=== PATIENT | male | born 1980 | race Caucasian/White ===

== ENCOUNTER → 2018-02-06 08:19 | Outpatient (CLI) | payer OTHER, SELFPAY ==
--- NOTE | 2018-02-06 | DI.US.S_ITS ---
PROCEDURE: US ABDOMEN LIMITED INDICATIONS: LEFT GROIN LUMP POST OP TECHNIQUE: Real-time focused scanning was performed of the inguinal region, with image documentation. COMPARISON: None. FINDINGS: Corresponding to the palpable abnormality is a 2.2 x 3.1 x 4.1 cm irregular fluid collection showing no internal blood flow. IMPRESSION: Probable seroma left groin Dictated by: Tyrese Shirley M.D. on 02/06/2018 at 9:33 Approved by: Tyrese Shirley M.D. on 02/06/2018 at 9:35
== END ==
PROVIDERS: PCP Internal Medicine; Visit Provider Specialist
DX: R22.42 Localized swelling, mass and lump, left lower limb (principal)
CPT/HCPCS: 76705

== ENCOUNTER → 2019-07-24 11:38 | Outpatient (CLI) | payer OTHER, SELFPAY ==
[2019-07-24 12:35] LABS: Add Manual Diff / Slide Review NO; Basophils Absolute Auto 0 /uL (0-100); Basophils Percent Auto 0.2 % (0-2); Eosinophils Absolute Auto 200 /uL (0-450); Eosinophils Percent Auto 1.6 % (2-4); Hemoglobin 14.6 g/dL (13.5-17.5); Lymphocytes Absolute Auto 2200 /uL (1100-4500); Lymphocytes Percent Auto 19.7 % (25-40); Mean Corpuscular Hemoglobin 28.7 PG (26-34); Mean Corpuscular Volume 84.3 fL (80-100); Monocytes Absolute Auto 700 /uL (0-900); Neutrophils Absolute Auto 8000 /uL (1500-7000); Neutrophils Percent Auto 72.5 % (50-75); Platelet Count 263 X10^3/uL (150-400); Red Cell Distribution Width 13.2 % (11.6-14.8)
[2019-07-24 12:48] LABS: Alanine Aminotransferase 29 IU/L (<50); Albumin 4.8 g/dL (3.5-5.0); Albumin Globulin Ratio 1.5 (1.0-2.8); Alkaline Phosphatase 71 U/L (38-126); Aspartate Aminotransferase 31 IU/L (17-59); Bilirubin Total 0.8 mg/dL (0.2-1.3); Blood Urea Nitrogen 14 mg/dL (9-20); Calcium 9.5 mg/dL (8.4-10.2); Carbon Dioxide 28 mmol/L (22-32); Chloride 102 mmol/L (98-107); Cholesterol 184 mg/dL (140-199); Estimated Glomerular Filt Rate > 60.0 mL/min (>60); Globulin 3.2 g/dL (1.7-4.1); Glucose 97 mg/dL (70-100); HDL Cholesterol 33 mg/dL (40-60); HEMOLYSIS < 15 (0-50); LDL Cholesterol Calculated 129 mg/dL (<100); Potassium 3.8 mmol/L (3.4-5.1); Sodium 140 mmol/L (137-145); Triglycerides 112 mg/dL (35-150)
== END ==
PROVIDERS: PCP Internal Medicine; Visit Provider Internal Medicine
DX: Z13.1 Encounter for screening for diabetes mellitus (principal); Z13.6 Encounter for screening for cardiovascular disorders; J45.909 Unspecified asthma, uncomplicated; R59.1 Generalized enlarged lymph nodes; R94.5 Abnormal results of liver function studies
CPT/HCPCS: 36415; 80053; 80061; 85025

== ENCOUNTER → 2020-03-24 17:14 | Outpatient (CLI) | payer OTHER, SELFPAY ==
[2020-03-25 21:46] LABS: COVID19 Sendout Not Detected (Not Detect)
== END ==
PROVIDERS: PCP Internal Medicine; Visit Provider Physician Assistant
DX: Z03.818 Encounter for observation for suspected exposure to other biological agents ruled out (principal)
CPT/HCPCS: 87635

== ENCOUNTER → 2020-08-21 14:15 | Outpatient (CLI) | payer OTHER, SELFPAY ==
--- NOTE | 2020-08-21 14:18 | DI.CT.S_ITS ---
PROCEDURE: CT ANGIO CHEST INDICATIONS: dyspnea/chest tightness TECHNIQUE: After the administration of intravenous contrast, 2 mm thick sections acquired from the pulmonary apices to the posterior costophrenic angles. 3-dimensional maximum intensity projection (MIP) coronal and sagittal reformats were then acquired through the thorax. For radiation dose reduction, the following was used: automated exposure control, adjustment of mA and/or kV according to patient size. COMPARISON: [facility], CT, CHEST ANGIO-PE, 07/31/2012, 1:36. [facility], CT, ABDOMEN/PELVIS WITH CONTRAST, 08/30/2017, 11:20. [facility], CR, CHEST 2 VIEW, 11/02/2017, 12:56. [facility], CR, XR CHEST 2 VIEWS, 08/16/2020, 10:39. FINDINGS: Image quality: Excellent. Pulmonary arteries: Pulmonary arteries are normal in size, and demonstrate no intraluminal filling defects to suggest central pulmonary embolism. Lungs and pleura: Lungs are clear. No pleural effusions or pneumothorax. Central and peripheral airways are patent. Mediastinum: Heart size is normal, without pericardial effusion. There is mild coronary artery calcification. No mediastinal or hilar adenopathy. Thoracic aorta is normal in caliber and enhancement. Esophagus is normal in caliber, without hiatal hernia. Bones and chest wall: No suspicious bony lesions. Ribs and thoracic spine appear intact throughout. Thyroid gland is normal. No axillary or supraclavicular adenopathy. Abdomen: Visualized upper abdominal solid organs appear normal in the early arterial phase of enhancement. IMPRESSION: 1. No evidence for pulmonary embolism. 2. No acute cardiopulmonary disease. 3. Mild coronary artery calcification. Dictated by: Christal Morris M.D. on 08/21/2020 at 14:54 Approved by: Christal Morris M.D. on 08/21/2020 at 15:01
== END ==
PROVIDERS: PCP Internal Medicine; Referring Provider Internal Medicine; Visit Provider Internal Medicine
DX: R07.89 Other chest pain (principal); R06.00 Dyspnea, unspecified; I25.10 Atherosclerotic heart disease of native coronary artery without angina pectoris
CPT/HCPCS: 71275; Q9967

== ENCOUNTER → 2020-10-28 10:16 | Outpatient (CLI) | payer OTHER, SELFPAY ==
--- NOTE | 2020-10-28 10:17 | DI.CT.S_ITS ---
PROCEDURE: CT ABDOMEN PELVIS W CON INDICATIONS: left flank pain TECHNIQUE: After the administration of intravenous contrast, 5 mm thick sections acquired from the diaphragm to the symphysis. 5 mm coronal and sagittal reformats were acquired. For radiation dose reduction, the following was used: automated exposure control, adjustment of mA and/or kV according to patient size. COMPARISON: [facility], CR, XR CHEST 2 VIEWS, 08/16/2020, 10:39. [facility], CT, ABDOMEN/PELVIS WITH CONTRAST, 08/30/2017, 11:20. FINDINGS: Image quality: Excellent. ABDOMEN: Lung bases: Lung bases are clear. Heart size is normal. Solid organs: Hepatic steatosis. Liver is normal in size and enhancement. Gallbladder is normal. Biliary system is non dilated. Pancreas enhances normally. Spleen is normal in size and enhancement. There is a 1.6 cm splenule. No adrenal nodules. Kidneys demonstrate normal size and enhancement, without hydronephrosis. Peritoneum and bowel: Bowel loops demonstrate normal wall thickness and caliber. No free fluid or air. Nodes and vessels: No retroperitoneal or mesenteric adenopathy by size criteria. Aorta and inferior vena cava are normal in size. Miscellaneous: No ventral hernias. PELVIS: Genitourinary: Bladder wall thickness is normal. Miscellaneous: No inguinal hernias or adenopathy. Multiple small subcentimeter lymph nodes are seen in groin bilaterally. Bones: No suspicious bony lesions. No vertebral body compression fractures. There are [id number] degenerative changes in lumbar spine. IMPRESSION: 1. No acute abnormalities in abdomen or pelvis. 2. Hepatic steatosis. 3. Small inguinal lymph nodes are present bilaterally, most likely reactive. Dictated by: Christal Morris M.D. on 10/28/2020 at 14:04 Approved by: Christal Morris M.D. on 10/28/2020 at 14:32
== END ==
PROVIDERS: PCP Internal Medicine; Referring Provider Internal Medicine; Visit Provider Internal Medicine
DX: R10.9 Unspecified abdominal pain (principal); R59.1 Generalized enlarged lymph nodes; I89.0 Lymphedema, not elsewhere classified; K76.0 Fatty (change of) liver, not elsewhere classified
CPT/HCPCS: 74177; Q9967

== ENCOUNTER → 2020-11-05 10:59 | Outpatient (CLI) | payer OTHER, SELFPAY ==
[2020-11-05 12:04] LABS: COVID19 -Nasal RAPID Negative (Negative)
== END ==
PROVIDERS: PCP Internal Medicine; Referring Provider Internal Medicine Pulmonary Disease; Visit Provider Internal Medicine Pulmonary Disease
DX: Z20.822 Contact with and (suspected) exposure to COVID-19 (principal)
CPT/HCPCS: 87635; C9803

== ENCOUNTER → 2020-11-06 12:47 | Outpatient (CLI) | payer OTHER, SELFPAY ==
--- NOTE | 2020-11-11 08:58 | PM.PFT.1 ---
Pulmonary Function Test Referral & Results Date Patient Seen: 11/06/20 Requesting provider: Hiral Palafox Results: The spirometry demonstrates an FVC of 4.86 L which is 83% of predicted. The FEV1 was measured at 3.78 L which is 82% of predicted. The FEV1/FVC ratio was 78 which is 97% of predicted. Following the administration of bronchodilator there was a 37% improvement in FEF 25-75%. Lung volumes show an SVC of 5.33 which is 96% of predicted. The diffusing capacity was measured at 45.33 which is 124% of predicted. The maximum voluntary ventilation was normal Interpretation: This study demonstrates perhaps very mild obstructive lung disease based on reduction FEV1 although FEV1/FVC ratio is preserved. There is evidence of limited benefit following bronchodilator based on improvement in FEF 25-75% as above. Patient with supra normal diffusing capacity also is consistent with possible diagnosis of asthma. Clinical correlation suggested
== END ==
PROVIDERS: PCP Internal Medicine; Referring Provider Internal Medicine Pulmonary Disease; Visit Provider Internal Medicine Pulmonary Disease
DX: R06.09 Other forms of dyspnea (principal); J98.8 Other specified respiratory disorders
CPT/HCPCS: 94060; 94726; 94729

== ENCOUNTER → 2020-11-19 15:57 | Outpatient (CLI) | payer OTHER, SELFPAY ==
--- NOTE | 2020-11-19 | DI.ECHO.S_ITS ---
[facility] +---------+ : : [address] : : : : [id number] : : : : Phone: [phone] Echocardiogram Report + + :Name: ORTIZ YUEN Study Date: 11/19/2020 Height: 73 in : :[facility] ReadingLocation: Weight: 350 lb : : Gender: Male BSA: 2.7 m2 : :: 1980 Age: 40 yrs BP: 180/98 mmHg: :Reason For Study: DYSPNEA : :Ordering Physician: SHOAIB RUIZ : : Performed By: Nikky Pham : :Referring: SHOAIB RUIZ : + + Interpretation Summary 1) Mildly increased left ventricular thickness (concentric) with normal size, normal wall motion, and normal systolic function (EF 60-65%). 2) Normal right ventricular size and function. 3) No significant valvular abnormalities. 4) Hypertension present during the study (BP 180/98mmHg). 5) The ascending aorta is mildly enlarged at 3.4cm. 6) No prior Echo available for comparison. Procedure: A two-dimensional transthoracic echocardiogram with color flow and Doppler was performed. The study quality was technically adequate. There is no prior echocardiogram noted for this patient. The patient was in sinus rhythm with heart rates between 58-77 bpm during the exam. Left Ventricle: The left ventricle is normal in size. There is mild concentric left ventricular hypertrophy. The ejection fraction is estimated to be 60-65%. Left ventricular systolic function appears normal without focal wall motion abnormalities. Right Ventricle: The right ventricle is normal in size and function. Atria: Both atria are normal in size. There is no Doppler evidence for an interatrial shunt. Mitral Valve: The mitral valve is normal in structure and function. There is trace mitral regurgitation. Aortic Valve: The aortic valve is trileaflet. The aortic valve opens well. There is no aortic valve stenosis. No aortic regurgitation is present. Tricuspid Valve: The tricuspid valve is normal in structure and function. No tricuspid regurgitation. Pulmonary artery pressures cannot be estimated because of the lack of a measurable TR jet velocity but the IVC suggests a CVP of around 3 mmHg. Pulmonic Valve: The pulmonic valve leaflets are thin and pliable; valve motion is normal. There is no pulmonic valvular regurgitation. Great Vessels: The aortic root is normal size. The ascending aorta is mildly enlarged. The IVC is of normal diameter and collapses greater than 50% with a sniff. This suggests a low right atrial pressure of 3 mm Hg. Pericardium/ Pleura There is no pericardial effusion. There is no pleural effusion. MMode/2D Measurements & Calculations LVIDd: 5.4 cm LVOT diam: 2.4 cm LVIDs: 3.5 cm Ao root diam: 3.5 cm FS: 35.7 % asc Aorta Diam: 3.4 cm EPSS: 0.23 cm Ao Arch Diam (Prox Trans): 2.6 cm IVSd: 1.2 cm LVPWd: 1.1 cm LV farfan. diameter/BSA (cm/m^2): 2.0 LV sys. diameter/BSA (cm/m^2): 1.3 LA A2 area: 20.4 cm2 RA long axis: 4.8 cm LA A4 area: 16.6 cm2 RA area: 16.6 cm2 LA length (vol): 4.5 cm RA vol: 48.6 ml LA vol: 64.0 ml RA : 17.8 ml/m2 LA vol index: 23.5 ml/m2 IVC diam: 1.3 cm RVD1 (basal): 3.8 cm TAPSE: 2.6 cm Doppler Measurements & Calculations Ao V2 max: 109.0 cm/sec LVOT Max Kulwant: 96.5 cm/sec Ao V2 mean: 71.6 cm/sec LV V1 max P.7 mmHg Ao max P.8 mmHg LV V1 VTI: 18.7 cm Ao mean P.3 mmHg MASOOD(I,D): 3.9 cm2 Ao V2 VTI: 21.1 cm MASOOD(V,D): 3.9 cm2 sev ratio: 0.89 MASOOD indexed to BSA (cm^2/m^2): 1.4 MV E max kulwant: 83.5 cm/sec PA V2 max: 96.2 cm/sec MV A max kulwant: 70.6 cm/sec PA V2 mean: 70.6 cm/sec MV E/A: 1.2 PA mean P.2 mmHg Med Peak E' Kulwant: 10.4 cm/sec PA pr(Accel): 39.6 mmHg E/E' med: 8.0 Lat Peak E' Kulwant: 11.6 cm/sec E/E' lat: 7.2 E/e' average: 7.6 MV dec time: 0.18 sec SVLVOT): 82.7 ml Reading Physician:06:44 PM
== END ==
PROVIDERS: PCP Internal Medicine; Referring Provider Internal Medicine Pulmonary Disease; Visit Provider Internal Medicine Pulmonary Disease
DX: I77.89 Other specified disorders of arteries and arterioles (principal); R06.09 Other forms of dyspnea
CPT/HCPCS: 93306

== ENCOUNTER → 2020-12-24 13:00 | Outpatient (CLI) | payer OTHER, SELFPAY ==
--- NOTE | 2021-01-22 07:12 | PM.CARDMON.1 ---
Pharmacist In Charge Owner Report Referral & Results Date Patient Seen: 12/24/20 Requesting provider: Isaiah Limon Indication: Arrhythmia Duration of monitoring (days): 14 Diary information: There were 12 patient triggered events and 0 patient diary entries Patient triggered events were associated with (within 45 seconds) sinus rhythm, PACs, and PVCs Data: Minimum heart rate identified was 41 beats per minute at 07:23 on 01/05/2021 Maximum sinus heart rate was 156 beats per minute at 16:53 on 01/05/2021 Maximum overall heart rate was 187 beats per minute at 13:05 on 01/01/2021 during a 5 beat run of SVT Less than 1% of identified beats were ventricular or supraventricular ectopic in origin, which would classify them as rare. There was the 1 run of SVT as above 5 beats at a rate of 187 beats per minute Impression: 14 day phototypesetting equipment monitor showing very rare very brief runs of SVT as well as rare supraventricular and ventricular ectopy. However no other significant dysrhythmias identified on this study
== END ==
PROVIDERS: PCP Internal Medicine; Referring Provider Internal Medicine; Visit Provider Internal Medicine
DX: I49.9 Cardiac arrhythmia, unspecified (principal)
CPT/HCPCS: 93244; 93246; 93248

== ENCOUNTER 2021-02-17 10:49 | Emergency (ER) | payer OTHER, SELFPAY ==
--- NOTE | 2021-02-17 11:09 | DI.RAD.S_ITS ---
PROCEDURE: XR CHEST 1V INDICATIONS: chest pain TECHNIQUE: One view of the chest was acquired. COMPARISON: [facility], , CHEST 2 VIEW, 11/02/2017, 12:56. FINDINGS: Surgical changes and devices: None. Lungs and pleura: Lungs are clear. No pleural effusions or pneumothorax. Mediastinum: Mediastinal contours appear normal. Heart size is normal. Bones and chest wall: No suspicious bony lesions. Overlying soft tissues appear unremarkable. IMPRESSION: No acute pulmonary process. Dictated by: Joan Reyes M.D. on 02/17/2021 at 11:48 Approved by: Joan Reyes M.D. on 02/17/2021 at 11:48
[2021-02-17 11:13] VITALS: BP 132/84; PULSE 75; RESP 16; TEMP 36.9; O2SAT 98; BMI 47.5
[2021-02-17 11:34] LABS: Add Manual Diff / Slide Review NO; Basophils Absolute Auto 0 /uL (0-100); Basophils Percent Auto 0.6 % (0-2); Eosinophils Absolute Auto 200 /uL (0-450); Eosinophils Percent Auto 3.8 % (2-4); Hematocrit 42.2 % (41-53); Hemoglobin 13.9 g/dL (13.5-17.5); Lymphocytes Absolute Auto 1800 /uL (1100-4500); Lymphocytes Percent Auto 34.4 % (25-40); Mean Corpuscular HGB Conc 32.9 % (30-36); Mean Corpuscular Hemoglobin 27.5 PG (26-34); Mean Corpuscular Volume 83.6 fL (80-100); Monocytes Absolute Auto 500 /uL (0-900); Monocytes Percent Auto 8.8 % (3-14); Neutrophils Absolute Auto 2800 /uL (1500-7000); Neutrophils Percent Auto 52.4 % (50-75); Platelet Count 244 X10^3/uL (150-400); Red Blood Cell Count 5.05 X10^6/uL (4.5-5.9); Red Cell Distribution Width 13.6 % (11.6-14.8); White Blood Cell Count 5.2 X10^3/uL (4.5-11.0)
[2021-02-17 11:47] LABS: Alanine Aminotransferase 28 IU/L (<50); Albumin 4.2 g/dL (3.5-5.0); Albumin Globulin Ratio 1.3 (1.0-2.8); Alkaline Phosphatase 72 U/L (38-126); Aspartate Aminotransferase 32 IU/L (17-59); BUN Creatinine Ratio 11.2 (6-22); Bilirubin Total 0.4 mg/dL (0.2-1.3); Blood Urea Nitrogen 10 mg/dL (9-20); Calcium 9.4 mg/dL (8.4-10.2); Carbon Dioxide 27 mmol/L (22-32); Chloride 105 mmol/L (98-107); Creatine Kinase 187 U/L (55-170); Estimated Glomerular Filt Rate > 60.0 mL/min (>60); Globulin 3.3 g/dL (1.7-4.1); Glucose 107 mg/dL (70-100); HEMOLYSIS < 15 (0-50); Lipase 81 U/L (23-300); Potassium 4.1 mmol/L (3.4-5.1); Sodium 139 mmol/L (137-145); Total Protein 7.5 g/dL (6.3-8.2)
[2021-02-17 11:58] LABS: Troponin I < 0.012 ng/mL (0.01-0.034)
[2021-02-17 12:02] LABS: CKMB % Relative Index 0.1 % (1.5-5.0); Creatine Kinase MB 0.24 ng/mL (<2.37)
--- NOTE | 2021-02-17 12:13 | ED.CHESTPAIN ---
HPI - Chest Pain General Chief Complaint: Chest Pain Stated Complaint: chest discomfort Time Seen by Provider: 02/17/21 12:09 Source: patient Mode of arrival: Ambulatory Limitations: no limitations History of Present Illness HPI narrative: Patient is a 40 year old male who is here for evaluation of several weeks of chest discomfort. Has also had periods of time which he describes symptoms that are similar to palpitations. He also has had some exertional dyspnea. He states that he feels like his left lung is not getting air. Has seen his primary doctor for this. Has an appointment with a chief power dispatcher coming up in the next several days/week. Has had a Holter monitor in the past which he reports was relatively unremarkable. Had continued symptoms today and wanted to come in to be evaluated to make sure that he could still continue to keep his appointment with the chief power dispatcher and not need anything sooner. Related Data Home Medications Medication Instructions Recorded Confirmed fexofenadine 60 mg PO Q12HP PRN #0 10/19/17 09/28/20 fluticasone propionate 1 spray INTRANASAL #0 10/19/17 09/28/20 Previous Rx's Medication Instructions Recorded clorazepate dipotassium 3.75 mg 3.75 mg PO BEDTIME #30 tab 03/05/18 tablet albuterol sulfate 90 mcg/actuation 2 puff INHALATION QID PRN #18 gram 08/25/20 aerosol inhaler doxycycline hyclate 100 mg capsule 100 mg PO BID #14 cap 08/25/20 Allergies Allergy/AdvReac Type Severity Reaction Status Date / Time amoxicillin [AMOXICILLIN] Allergy Intermediate Hives Verified 02/17/21 11:13 Penicillins [PENICILLINS] Allergy Intermediate Hives Verified 02/17/21 11:13 Review of Systems Constitutional Constitutional: Reports system reviewed and no additional complaints, except as documented Cardiovascular Cardiovascular: Reports chest pain and Reports dyspnea on exertion Comments: Palpitations Respiratory Respiratory: Reports dyspnea on exertion Gastrointestinal Gastrointestinal: Reports system reviewed and no additional complaints, except as documented Musculoskeletal Musculoskeletal: Reports system reviewed and no additional complaints, except as documented Integumentary/Breasts Skin/Breast: Reports system reviewed and no additional complaints, except as documented Neurologic Neurologic: Reports system reviewed and no additional complaints, except as documented Hematologic/Lymphatic On Anticoagulants: No Allergic/Immunologic Allergic/Immunologic: Reports system reviewed and no additional complaints, except as documented Patient History Medical History Abnormal liver function tests (11/10/17) Asthma Eczema Epigastric pain Hx of adenomatous colonic polyps Intentional weight loss Low back pain Lymphadenopathy (11/10/17) Lymphedema Malaise Obesity Obstructive sleep apnea Rash of genital area Seasonal allergies Seborrhea Tympanic membrane perforation Family History Grandmother Lymphoma Mother Hypertension Father Hypertension Social History household members: family Smoking Status: Never smoker alcohol intake: never Smoking Status: Never smoker Substance Use Type: does not use Exam Initial Vital Signs Initial Vital Signs: Vital Signs Temperature 98.4 F 02/17/21 11:13 Pulse Rate 75 02/17/21 11:13 Respiratory Rate 16 02/17/21 11:13 Blood Pressure 132/84 02/17/21 11:13 Pulse Oximetry 98 02/17/21 11:13 Const General: cooperative and comfortable Limitations: mental status not altered HENMT Head: normal to inspection and normocephalic Resp Effort & Inspection: normal respiratory effort Auscultation: clear to auscultation bilaterally Cardio Rate: regular rate Rhythm: regular rhythm Skin Lesions: no lesions Rashes: no rashes Neuro General: patient alert and patient awake Cognition: normal cognition Speech: speech normal Extrem General: normal to inspection Psych Appearance: grossly normal and well kempt Scores GCS Comfort coma scale eye opening: Spontaneous Comfort coma scale verbal response: Orientated Comfort coma scale motor response: Obey commands Comfort coma scale total score: 15 PERC Score Age greater than or equal to 50 years: No Heart rate greater than or equal to 100 bpm: No Room Air O2 Sat less than 95%: No Unilateral leg swelling: No Recent trauma or surgery: No Hemoptysis: No Prior PE or DVT: No Hormone Use: No Total PERC Score: 0 Course Orders Ordered: ED Orders 02/17/21 11:09 XR chest 1V Stat EKG-12 Lead Stat 02/17/21 11:22 Complete Blood Count AUTO DIFF Stat Comprehensive Metabolic Panel Stat Lipase Stat Troponin & CK Cardiac Panel Stat 02/17/21 12:00 Partial Thromboplastin Time Stat Prothrombin Time INR Stat Vital Signs Vital signs: Vital Signs - 8 hr 02/17/21 11:13 Temperature 98.4 F Pulse Rate 75 Respiratory Rate 16 Blood Pressure 132/84 Pulse Oximetry 98 MDM - Chest Pain Lab Data Attestation: I reviewed the patient's lab results. Result diagrams: 02/17/21 11:22 02/17/21 11:22 Labs: Lab Results 02/17/21 02/17/21 02/17/21 Range/Units 11: 11: 12:00 WBC 5.2 (4.5-11.0) X10^3/uL RBC 5.05 (4.5-5.9) X10^6/uL Hgb 13.9 (13.5-17.5) g/dL Hct 42.2 (41-53) % MCV 83.6 (80-100) fL MCH 27.5 (26-34) PG MCHC 32.9 (30-36) % RDW 13.6 (11.6-14.8) % Plt Count 244 (150-400) X10^3/uL Neut % (Auto) 52.4 (50-75) % Lymph % (Auto) 34.4 (25-40) % Canyon % (Auto) 8.8 (3-14) % Eos % (Auto) 3.8 (2-4) % Baso % (Auto) 0.6 (0-2) % Neut # (Auto) 2800 (7997-5060) /uL Lymph # (Auto) 1800 (5637-7675) /uL Canyon # (Auto) 500 (0-900) /uL Eos # (Auto) 200 (0-450) /uL Baso # (Auto) 0 (0-100) /uL PT 12.7 (10.1-12.7) SECONDS INR 1.1 (0.9-1.3) APTT 38 H (26.4-36.2) SECONDS Sodium 139 (137-145) mmol/L Potassium 4.1 (3.4-5.1) mmol/L Chloride 105 (98-107) mmol/L Carbon Dioxide 27 (22-32) mmol/L BUN 10 (9-20) mg/dL Creatinine 0.89 (0.66-1.25) mg/dL Estimated GFR > 60.0 (>60) mL/min BUN/Creatinine Ratio 11.2 (6-22) Glucose 107 H (70-100) mg/dL Calcium 9.4 (8.4-10.2) mg/dL Total Bilirubin 0.4 (0.2-1.3) mg/dL AST 32 (17-59) IU/L ALT 28 (<50) IU/L Alkaline Phosphatase 72 (38-126) U/L Total Creatine Kinase 187 H (55-170) U/L CK-MB (CK-2) 0.24 (<2.37) ng/mL CK-MB (CK-2) Rel Index 0.1 L (1.5-5.0) % Troponin I < 0.012 (0.01-0.034) ng/mL Total Protein 7.5 (6.3-8.2) g/dL Albumin 4.2 (3.5-5.0) g/dL Globulin 3.3 (1.7-4.1) g/dL Albumin/Globulin Ratio 1.3 (1.0-2.8) Lipase 81 (23-300) U/L Imaging Data Chest x-ray: Radiologist's Impression: [address] [id number] ReportSigned Patient: Ho Adams WMR#: [id number]: [id number]:[id number]/Sex: 40 / MDate of Service: 02/17/21Loc: EDAccession Number: [id number] Procedure: XR chest 1V Ordering Provider: Quentin Carrington D.O. PROCEDURE: XR CHEST 1V INDICATIONS: chest pain TECHNIQUE: One view of the chest was acquired. COMPARISON: [facility], CHEST 2 VIEW, 11/02/2017, 12:56. FINDINGS: Surgical changes and devices: None. Lungs and pleura: Lungs are clear. No pleural effusions or pneumothorax. Mediastinum: Mediastinal contours appear normal. Heart size is normal. Bones and chest wall: No suspicious bony lesions. Overlying soft tissues appear unremarkable. IMPRESSION: No acute pulmonary process. Dictated by: Joan Reyes M.D. on 02/17/2021 at 11:48 Approved by: Joan Reyes M.D. on 02/17/2021 at 11:48 ECG Data Attestation: I personally reviewed and interpreted this ECG as follows: Prior ECG tracings: not available for review Interpretation: Sinus rhythm Ventricular rate 82 Normal axis Normal QRS Normal QTC No ST T wave changes MDM Narrative Medical decision making narrative: EKG and chest x-ray are unremarkable. Low suspicion for ACS. Low suspicion for pulmonary embolism. Labs also unremarkable. Patient is afebrile. Low suspicion for pneumonia. No indication for antibiotics. I do feel that follow-up with Cardiology at his scheduled appointment is the appropriate next step. He was given return precautions. He expressed understanding and agreement. Discharge Plan Departure Patient Disposition: Home Clinical Impression: Atypical chest pain Instructions: DI for Atypical Chest Pain Activity Restrictions/Additional Instructions: Your workup today here in the emergency department is very reassuring. I recommend that you keep your scheduled appointment with Cardiology coming up in the next 10 days. Continue all of your medications as directed. Return to the emergency department for any new or worsening symptoms Prescriptions: No Action fexofenadine 60 MG tablet 60 mg PO Q12HP PRN (Reason: Allergic Reaction) Qty: 0 RF: 0 fluticasone propionate 16 GM spray,suspension 1 spray Intranasal Qty: 0 RF: 0 clorazepate dipotassium 3.75 mg tablet 3.75 mg PO BEDTIME Qty: 30 RF: 3 albuterol sulfate [Ventolin HFA] 90 mcg/actuation HFA aerosol inhaler 2 puff inhalation QID PRN (Reason: asthma) Qty: 18 RF: 8 doxycycline hyclate 100 mg capsule 100 mg PO BID Qty: 14 RF: 3 Referrals: Isaiah Limon MD [Primary Care Provider] -
[2021-02-17 12:29] LABS: INR 1.1 (0.9-1.3); Prothrombin Time 12.7 SECONDS (10.1-12.7)
[2021-02-17 12:31] LABS: PTT Partial Thromboplastin Tim 38 SECONDS (26.4-36.2)
[2021-02-17 12:47] VITALS: BP 141/90; PULSE 69; O2SAT 96
== END 2021-02-17 12:49 | disposition home or self-care (01) ==
PROVIDERS: Emergency Provider Emergency Medicine; PCP Internal Medicine
DX: R07.89 Other chest pain (principal); R00.2 Palpitations; R06.00 Dyspnea, unspecified
CPT/HCPCS: 71045; 80053; 82550; 82553; 83690; 84484; 85025; 85610; 85730; 93005; 99282; 99284

== ENCOUNTER → 2021-03-24 08:57 | Outpatient (CLI) | payer OTHER, SELFPAY ==
[2021-03-24 11:53] LABS: COVID19 -Nasal RAPID Negative (Negative)
== END ==
PROVIDERS: PCP Internal Medicine; Visit Provider Physician Assistant
DX: Z01.812 Encounter for preprocedural laboratory examination (principal); Z20.822 Contact with and (suspected) exposure to COVID-19
CPT/HCPCS: 87635

== ENCOUNTER → 2021-03-24 08:58 | Outpatient (CLI) | payer OTHER, SELFPAY ==
--- NOTE | 2021-03-26 14:43 | P.PCN_ITS ---
Cardiac Stress Test Report Referral & Results Date Patient Seen: 03/26/21 Requesting provider: Isaiah Limon Indication: Chest pain Rest ECG: Unremarkable Procedure Note: Today following both written and verbal informed consent the patient was exercised according to a standard [place] protocol patient went for a total of 7 minutes 30 seconds achieving a maximum heart rate of 168 maximum systolic blood pressure of 192. This is approximately 10.1 METS. Exercise was terminated at this point because of targets were met. Patient was also given Cardiolite through a previously started Hep-Lock IV by the diagnostic imaging staff approximately 1 minute prior to the cessation of exercise. Patient was somewhat quickly tachycardic although ultimately his heart rate at m aximum was not excessively tachycardic. There are no ST-T segment changes during exercise but late in recovery did develop some nonspecific T-wave changes including T-wave inversion in inferior lateral leads Function aerobic impairment rates about 20% on the sedentary scale No dysrhythmias identified Impression: No clear evidence of ischemia although nonspecific changes as noted above. Limited exercise capacity as noted. Please see perfusion imaging report as well Please note: Actual ECG tracings can be found in the PACS system.
--- NOTE | 2021-03-26 18:57 | DI.NM.S_ITS ---
DATE OF SERVICE: 03/24/2021 PROCEDURE PERFORMED: Exercise treadmill stress and rest myocardial perfusion imaging with gating to assess ejection fraction and regional wall motion. ORDERING PROVIDER: Dr. Isaiah Limon. INDICATIONS: The patient is a 40-year-old morbidly obese male with exertional dyspnea, palpitations, and chest discomfort. EXERCISE TREADMILL TESTING: The patient was able to exercise for 7 minutes, 32 seconds on a standard Francisco protocol suggesting severely reduced exercise capacity with an GLEN of +35%. He had an accelerated heart rate response to exercise with a resting heart rate of 106 BPM, increasing to 128 BPM at the end of stage I, and achieving a maximum heart rate of 168, BPM (94% of his predicted maximum). He had a normal blood pressure response. He had no apparent chest discomfort. His resting ECG shows sinus rhythm with nonspecific ST and T-wave abnormalities which become slightly accentuated with stress but remain nonspecific. There were no arrhythmias. At 6 minutes, 29 seconds of exercise at a heart rate of 165 BPM, 24.7 millicuries of technetium-99m Myoview was injected. He was imaged 15 minutes later using a gated SPECT acquisition protocol. Several days earlier while at rest, he was injected with 25.9 millicuries of technetium-99m Myoview and was imaged 30 minutes later, again using a gated SPECT acquisition protocol. FINDINGS: 1. Raw data: There is fair myocardial tracer uptake although with clear chest wall attenuation noted. His lung/heart ratio is at the upper limits of normal at 0.42, which can be a sign of pulmonary congestion. His TID ratio is normal at 0.76. 2. Quantitated gated SPECT: Post-stress ejection fraction is estimated at 71% without any focal wall motion abnormality. Resting ejection fraction is estimated at 73% with moderately increased left ventricular volumes at 163 mL. 3. Myocardial perfusion imaging: Post-stress supine images shows a fairly normal myocardial perfusion pattern with mildly reduced tracer activity at the base of the inferior wall in a pattern consistent with diaphragmatic attenuation, supported by its resolution on the prone images which reveal a fairly normal perfusion pattern. The resting images show an identical perfusion pattern without any areas of improvement. IMPRESSION: 1. Normal myocardial perfusion study for ischemia. 2. No evidence of myocardial ischemia or previous myocardial infarction. 3. Normal left ventricular systolic function without focal wall motion abnormality but moderately increased left ventricular volumes and a borderline elevated lung/heart ratio which can be reflective of pulmonary congestion but is nonspecific. 4. Severely reduced exercise capacity with an accelerated chronotropic response to exercise, likely reflecting poor cardiovascular fitness, but without angina or ECG evidence of ischemia. Ho Adams - VALERY/rah/wilton doc#: [id number]/job#: [id number] dd: 03/26/2021 17:02:00 dt: 03/26/2021 18:33:00 DICTATING MD/COPIES TO: Faraz Galindo MD; Isaiah Limon MD COPIES MNE: MORGAN;
== END ==
PROVIDERS: PCP Internal Medicine; Referring Provider Internal Medicine; Visit Provider Internal Medicine
DX: R07.89 Other chest pain (principal); E66.01 Morbid (severe) obesity due to excess calories; R06.09 Other forms of dyspnea; R00.2 Palpitations; Z20.822 Contact with and (suspected) exposure to COVID-19
CPT/HCPCS: 78452; 87635; 93016; 93017; 93018; A9502

== ENCOUNTER 2022-02-24 09:19 | Outpatient (CLI) | payer OTHER, SELFPAY | END 2022-02-28 09:22 | disposition home or self-care (01) | LOC: PHYS 09:20 | PROVIDERS: Family Provider Internal Medicine; PCP Internal Medicine; Referring Provider Internal Medicine; Visit Provider Internal Medicine | DX: R20.2 Paresthesia of skin (principal) | CPT/HCPCS: 95886; 95909 ==

== ENCOUNTER → 2022-06-16 13:58 | Outpatient (CLI) | payer OTHER, SELFPAY ==
[2022-06-16 15:10] LABS: Add Manual Diff / Slide Review NO; Basophils Absolute Auto 100 /uL (0-100); Basophils Percent Auto 0.9 % (0-2); Eosinophils Absolute Auto 600 /uL (0-450); Eosinophils Percent Auto 6.8 % (2-4); Hematocrit 41.3 % (41-53); Lymphocytes Absolute Auto 2400 /uL (1100-4500); Lymphocytes Percent Auto 28.2 % (25-40); Mean Corpuscular Hemoglobin 27.6 PG (26-34); Mean Corpuscular Volume 81.3 fL (80-100); Monocytes Absolute Auto 600 /uL (0-900); Monocytes Percent Auto 7.7 % (3-14); Neutrophils Absolute Auto 4700 /uL (1500-7000); Neutrophils Percent Auto 56.4 % (50-75); Platelet Count 274 X10^3/uL (150-400); Red Blood Cell Count 5.08 X10^6/uL (4.5-5.9); White Blood Cell Count 8.4 X10^3/uL (4.5-11.0)
[2022-06-16 15:17] LABS: Alanine Aminotransferase 29 IU/L (<50); Albumin 4.4 g/dL (3.5-5.0); Albumin Globulin Ratio 1.3 (1.0-2.8); Alkaline Phosphatase 63 U/L (38-126); Aspartate Aminotransferase 26 IU/L (17-59); BUN Creatinine Ratio 17.8 (6-22); Bilirubin Total 0.3 mg/dL (0.2-1.3); Blood Urea Nitrogen 16 mg/dL (9-20); C-Reactive Protein Quant 1.4 mg/dL (<1.0); Calcium 9.3 mg/dL (8.4-10.2); Carbon Dioxide 27 mmol/L (22-32); Chloride 101 mmol/L (98-107); Estimated Glomerular Filt Rate > 60 mL/min (>60); Globulin 3.3 g/dL (1.7-4.1); Glucose 103 mg/dL (70-100); HEMOLYSIS < 15 (0-50); Potassium 4.4 mmol/L (3.4-5.1); Sodium 138 mmol/L (137-145); Total Protein 7.7 g/dL (6.3-8.2)
[2022-06-16 15:33] LABS: Erythrocyte Sedimentation Rate 9 MM/HR (0-15)
[2022-06-16 16:10] LABS: TSH w/ Reflex to FT4 1.41 uIU/mL (0.47-4.68)
== END ==
PROVIDERS: Family Provider Internal Medicine; PCP Internal Medicine; Referring Provider Internal Medicine; Visit Provider Internal Medicine
DX: I89.0 Lymphedema, not elsewhere classified (principal); R59.1 Generalized enlarged lymph nodes
CPT/HCPCS: 36415; 80053; 84443; 85025; 85651; 86140

== ENCOUNTER → 2022-07-05 15:21 | Outpatient (CLI) | payer OTHER, SELFPAY ==
--- NOTE | 2022-07-05 15:21 | DI.US.S_ITS ---
PROCEDURE: US PERIPH VENOUS UP EXTREM LT INDICATIONS: EDEMA TECHNIQUE: Real-time imaging, as well as color and pulse Doppler interrogation, was performed of the left upper extremity deep veins from the inferior neck to the antecubital fossa. COMPARISON: None. FINDINGS: The internal jugular vein, visualized portions of the subclavian vein, axillary, and brachial veins are free of intraluminal thrombus. Where physically possible, the veins are normally compressible. Color and pulse Doppler demonstrate normal intraluminal flow, with expected phasicity and pulsatility. Additional scanning of the cephalic and basilic veins of the superficial system demonstrate normal compressibility, without thrombus. IMPRESSION: No deep vein thrombosis of the left upper extremity. Dictated by: Melissa Piper M.D. on 07/05/2022 at 16:31 Approved by: Melissa Piper M.D. on 07/05/2022 at 16:32
== END ==
PROVIDERS: Family Provider Internal Medicine; PCP Internal Medicine; Referring Provider Internal Medicine; Visit Provider Internal Medicine
DX: R60.9 Edema, unspecified (principal); M79.89 Other specified soft tissue disorders
CPT/HCPCS: 93971

== ENCOUNTER → 2023-01-03 16:03 | Outpatient (CLI) | payer OTHER, SELFPAY ==
[2023-01-03 17:54] LABS: Add Manual Diff / Slide Review NO; Basophils Absolute Auto 100 /uL (0-100); Basophils Percent Auto 0.7 % (0-2); Eosinophils Absolute Auto 300 /uL (0-450); Eosinophils Percent Auto 4.7 % (2-4); Hematocrit 40.9 % (41-53); Hemoglobin 13.8 g/dL (13.5-17.5); Lymphocytes Absolute Auto 2700 /uL (1100-4500); Mean Corpuscular HGB Conc 33.8 % (30-36); Mean Corpuscular Hemoglobin 27.8 PG (26-34); Mean Corpuscular Volume 82.1 fL (80-100); Monocytes Absolute Auto 600 /uL (0-900); Monocytes Percent Auto 8.1 % (3-14); Neutrophils Absolute Auto 3400 /uL (1500-7000); Neutrophils Percent Auto 48.5 % (50-75); Platelet Count 283 X10^3/uL (150-400); Red Blood Cell Count 4.98 X10^6/uL (4.5-5.9); Red Cell Distribution Width 13.8 % (11.6-14.8)
[2023-01-03 18:23] LABS: HEMOLYSIS 43 (0-50); Potassium 3.8 mmol/L (3.4-5.1)
[2023-01-03 18:25] LABS: Alanine Aminotransferase 49 IU/L (<50); Albumin 4.3 g/dL (3.5-5.0); Albumin Globulin Ratio 1.2 (1.0-2.8); Alkaline Phosphatase 58 U/L (38-126); Aspartate Aminotransferase 39 IU/L (17-59); Bilirubin Total 0.4 mg/dL (0.2-1.3); Blood Urea Nitrogen 8 mg/dL (9-20); C-Reactive Protein Quant 1.5 mg/dL (<1.0); Calcium 8.5 mg/dL (8.4-10.2); Carbon Dioxide 28 mmol/L (22-32); Chloride 102 mmol/L (98-107); Estimated Glomerular Filt Rate > 60 mL/min (>60); Globulin 3.7 g/dL (1.7-4.1); Glucose 93 mg/dL (70-100); Sodium 137 mmol/L (137-145)
[2023-01-03 18:30] LABS: Erythrocyte Sedimentation Rate 7 MM/HR (0-15)
== END ==
PROVIDERS: Family Provider Internal Medicine; PCP Internal Medicine; Referring Provider Internal Medicine; Visit Provider Internal Medicine
DX: I89.0 Lymphedema, not elsewhere classified (principal); J45.909 Unspecified asthma, uncomplicated; L30.9 Dermatitis, unspecified; R06.00 Dyspnea, unspecified; R59.1 Generalized enlarged lymph nodes; R94.5 Abnormal results of liver function studies
CPT/HCPCS: 36415; 80053; 85025; 85651; 86140

== ENCOUNTER → 2023-01-05 08:35 | Outpatient (CLI) | payer OTHER, SELFPAY ==
[2023-01-11 14:36] LABS: 5-HIAA, UR 24HR 7.7 mg/24 hr (0.0-14.9); 5-HIAA, Urine 4.4 mg/L (Undefined); Creatinine Urine 123.1 mg/dL (Not Estab.)
[2023-01-13 11:28] LABS: Normetanephrine Total 357 ug/24 hr (156-729); Urine, Metanephrine 102 ug/L (Undefined); Urine, Normetanephrine 204 ug/L (Undefined)
[2023-01-13 14:08] LABS: Dopamine, Ur 24hr 301 ug/24 hr (0-510); Epinephrine, U 24hr 5 ug/24 hr (0-20); Norepinephrine Ur 24hr 53 ug/24 hr (0-135)
== END ==
PROVIDERS: Family Provider Internal Medicine; PCP Internal Medicine; Referring Provider Internal Medicine; Visit Provider Internal Medicine
DX: I89.0 Lymphedema, not elsewhere classified (principal); J45.909 Unspecified asthma, uncomplicated; L30.9 Dermatitis, unspecified; R06.00 Dyspnea, unspecified; R59.1 Generalized enlarged lymph nodes; R94.5 Abnormal results of liver function studies
CPT/HCPCS: 82384; 82570; 83497; 83835

== ENCOUNTER → 2023-11-07 16:19 | Outpatient (CLI) | payer BC, SELFPAY ==
[2023-11-07 18:05] LABS: Add Manual Diff / Slide Review NO; Basophils Absolute Auto 0 /uL (0-100); Basophils Percent Auto 0.5 % (0-2); Eosinophils Absolute Auto 500 /uL (0-450); Eosinophils Percent Auto 5.9 % (2-4); Hematocrit 42.8 % (41-53); Hemoglobin 14.3 g/dL (13.5-17.5); Lymphocytes Absolute Auto 2400 /uL (1100-4500); Lymphocytes Percent Auto 26.9 % (25-40); Mean Corpuscular HGB Conc 33.5 % (30-36); Mean Corpuscular Hemoglobin 27.5 PG (26-34); Monocytes Absolute Auto 500 /uL (0-900); Neutrophils Absolute Auto 5500 /uL (1500-7000); Neutrophils Percent Auto 60.7 % (50-75); Platelet Count 260 X10^3/uL (150-400); Red Blood Cell Count 5.22 X10^6/uL (4.5-5.9); White Blood Cell Count 9.1 X10^3/uL (4.5-11.0)
[2023-11-07 18:12] LABS: Hemoglobin A1C% w Est Avg Glu 5.5 % (4.0-6.0)
[2023-11-07 18:24] LABS: Erythrocyte Sedimentation Rate 7 MM/HR (0-15)
[2023-11-07 18:31] LABS: Alanine Aminotransferase 39 IU/L (<50); Albumin 4.4 g/dL (3.5-5.0); Albumin Globulin Ratio 1.2 (1.0-2.8); Alkaline Phosphatase 70 U/L (38-126); Aspartate Aminotransferase 30 IU/L (17-59); BUN Creatinine Ratio 19.6 (6-22); Bilirubin Total 0.6 mg/dL (0.2-1.3); Blood Urea Nitrogen 18 mg/dL (9-20); C-Reactive Protein Quant 1.2 mg/dL (<1.0); Calcium 9.3 mg/dL (8.4-10.2); Carbon Dioxide 26 mmol/L (22-32); Chloride 103 mmol/L (98-107); Cholesterol 218 mg/dL (140-199); Estimated Glomerular Filt Rate > 60 mL/min (>60); Globulin 3.6 g/dL (1.7-4.1); Glucose 86 mg/dL (70-100); HDL Cholesterol 41 mg/dL (40-60); HEMOLYSIS < 15 (0-50); LDL Cholesterol Calculated 136 mg/dL (<100); Potassium 4.1 mmol/L (3.4-5.1); Sodium 139 mmol/L (137-145); Triglycerides 206 mg/dL (35-150)
[2023-11-07 18:43] LABS: Free T4, Direct Thyroxine 1.02 ng/dL (0.78-2.19)
[2023-11-07 18:57] LABS: Thyroid Stimulating Hormone 0.829 uIU/mL (0.47-4.68)
== END ==
PROVIDERS: Family Provider Internal Medicine; PCP Internal Medicine; Referring Provider Internal Medicine; Visit Provider Internal Medicine
DX: I89.0 Lymphedema, not elsewhere classified (principal); J45.909 Unspecified asthma, uncomplicated; R94.5 Abnormal results of liver function studies; R59.1 Generalized enlarged lymph nodes; E03.9 Hypothyroidism, unspecified; R73.9 Hyperglycemia, unspecified
CPT/HCPCS: 36415; 80053; 80061; 83036; 84439; 84443; 85025; 85651; 86140

== ENCOUNTER → 2025-04-24 09:28 | Outpatient (CLI) | payer OTHER, SELFPAY ==
[2025-04-24 09:58] LABS: Add Manual Diff / Slide Review NO; Hematocrit 42.8 % (41-53); Hemoglobin 14.8 g/dL (13.5-17.5); Lymphocytes Absolute Auto 2200 /uL (1100-4500); Mean Corpuscular HGB Conc 34.5 % (30-36); Mean Corpuscular Hemoglobin 28.1 PG (26-34); Mean Corpuscular Volume 81.4 fL (80-100); Platelet Count 272 X10^3/uL (150-400)
[2025-04-24 10:02] LABS: Appearance Urine UA CLEAR; Bilirubin Urine UA 2+ (NEGATIVE); Color Urine UA YELLOW; Glucose Urine UA NEGATIVE (Negative); Ketones Urine UA 3+ (NEGATIVE); Leukocyte Esterase Urine UA NEGATIVE (NEGATIVE); Nitrite Urine UA NEGATIVE (Negative); Occult Blood Urine UA NEGATIVE (Negative); Protein Urine UA TRACE (Negative); Specific Gravity Urine UA 1.025 (1.000-1.035); Urobilinogen Urine UA 2.0 E.U./dL (0.2); pH Urine UA 5.5 (4.5-8.0)
[2025-04-24 10:10] LABS: Culture Indicated Urine Cult Not Indicated
[2025-04-24 10:11] LABS: Ictotest Urine Negative (Negative)
[2025-04-24 10:40] LABS: Alanine Aminotransferase 65 IU/L (<50); Albumin 4.7 g/dL (3.5-5.0); Albumin Globulin Ratio 1.5 (1.0-2.8); Alkaline Phosphatase 72 U/L (38-126); Blood Urea Nitrogen 13 mg/dL (9-20); Calcium 9.4 mg/dL (8.4-10.2); Carbon Dioxide 21 mmol/L (22-32); Chloride 102 mmol/L (98-107); Estimated Glomerular Filt Rate > 60 mL/min (>60); Globulin 3.2 g/dL (1.7-4.1); Glucose 91 mg/dL (70-99); HEMOLYSIS < 15 (0-50); Potassium 4.4 mmol/L (3.4-5.1); Sodium 139 mmol/L (137-145); Total Protein 7.9 g/dL (6.3-8.2)
== END ==
PROVIDERS: PCP Internal Medicine; Referring Provider Internal Medicine; Visit Provider Internal Medicine
DX: R50.9 Fever, unspecified (principal); M54.9 Dorsalgia, unspecified; R21 Rash and other nonspecific skin eruption; N20.0 Calculus of kidney
CPT/HCPCS: 36415; 80053; 81003; 81015; 85025; 85651; 86140